=== PATIENT | female | born 1955 | race Caucasian/White ===

== ENCOUNTER 2016-12-25 01:39 | Inpatient (IN) | payer OTHER, MEDICARE ==
[~2016-12-25] VITALS: Ht 167.6 cm; Wt 118.4 kg
[2016-12-25] VITALS (7 sets, daily range): BP systolic 110–142; BP diastolic 60–80
[~2016-12-25 01:39] MED LIST: CELEXA20 M1 PO; COREG 25 MG TAB25 MG PO; CYMBALTA 20 MG20 MG PO; DIAZEPAM5 MG PO; FENTANYL TR12 MCG/HR TOP; LISINOPRIL10 MG PO; LOVENOX 4040 MG/0.4 SC; METFORMIN ER500 MG PO; OPANA5 MG PO; PREVACID 30MG30 MG PO; PROAIR HFA0.09 MG/Ac INH; VENTOLIN1 PUF INH
[2016-12-25] MEDS ORDERED: CELEXA20 M1 PO (06:45)
--- NOTE | 2016-12-25 10:56 | Operative Report ---
Operative/Inv Procedure Report Surgery Date: 12/25/16 Name of Procedure: Supracervical hysterectomy bilateral salpingo-oophorectomy Pre-Operative Diagnosis: Pelvic pain postmenopausal bleeding family history of ovarian cancer Post-Operative Diagnosis: Same Estimated Blood Loss: 500 Surgeon/Forensic Engineer: AIXA BILL,ROBERT Goode and Dr. Cecil Engle Anesthesia: general endotracheal tube Operative/Procedure Note Note: Cc general patient was taken the operating room placed supine position after adequate anesthesia patient placed in dorsolithotomy position the vagina from dorsal fashion bladder was catheterized examination under anesthesia performed stents were placed by Dr. Emma Hernandez will dictate that part of the case patient was returned supine position through an old Pfannenstiel skin incision skin was cut was carried down to rectus fascia which was cut in curvilinear fashion I direction peritoneal cavity was entered high into the abdomen Jones O'Riccardo was placed in usual fashion patient placed in Trendelenburg lap pads with rings placed at this point the round ligament on the left was identified suture- ligated using 0 round ligament left was identified suture-ligated 0 the bladder flap was developed sharply as well as bluntly sequentially the cervical branches uterine artery on the right and left were clamped and cut to level of the external os specimen was removed after Carter ducts been placed in the bases cervix hemostasis was apparent the cuff was oversewn running locking suture and of interrupted [id number]. The right tube and ovary were picked up the endopelvic artery was clamped 2 using Carter ducts the specimen was removed the was sutured 2 using 0 left tube and ovary were picked up clamped 2 the endopelvic artery on the left specimen was removed the artery was oversewn 2 using 0 hemostasis was apparent at this point Darren was applied the cervical cuff lap pads were removed hemostasis was apparent the peritoneum was reapproximated using 0 the fascia was reapproximated to continue sutures #1 skin was reapproximated connie sterile dressings were applied at the end the case the vagina was irrigated found to be hemostatic the [place] atrophy some Darren was applied to the vagina for bleeding from the hymenal ring hemostasis was apparent all stents removed bilaterally tip intact patient was returned spine position sterile dressing was applied to the abdomen the patient was extubated awakened from anesthesia and transferred recovery room awake alert with counts correct Findings: Slightly enlarged uterus ovaries consistent with postmenopausal status evidence bilateral tubal ligation
[2016-12-25] MEDS ORDERED: IBUPROFEN800 M1 PO (15:54)
[2016-12-25] MEDS ORDERED: PERCOCET 5-3251 EACH PO (15:54)
--- NOTE | 2016-12-25 21:50 | Operative Report ---
Operative/Inv Procedure Report Surgery Date: 12/25/16 Name of Procedure: cystoscopy: bilateral stent insertion Pre-Operative Diagnosis: ovarian cyst Post-Operative Diagnosis: same Estimated Blood Loss: scant Surgeon/Music Teacher: MD BLANCA BYERS-UROLOGY Anesthesia: general endotracheal tube Specimens: UCX Complications: NONE Operative/Procedure Note Note: The patient was taken to the operating room and placed on the OR table in supine position. Timeout was performed, with the patient awake, to confirm identify, planned procedures, anesthesia, antibiotics and other pertinent dawood-operative information. After adequate anesthesia, and IV antibiotics, the patient was placed in lithotomy Yellow-fin stirrups. She was then draped and prepped in the usual surgical fashion, including a vaginal prep. A 22 Frisian cystoscope sheath with a 30 angle lens was inserted into the bladder without significant difficulty. The bladder was thoroughly and systematically examined, and was noted to be free of tumor, free of stone, free of endometriosis. Both ureteral orifices were in their orthotopic positions with clear reflux bilaterally. Under direct visualization the left orifice was intubated with a 5 Frisian whistle-tip catheter, which was advanced easily into the left kidney pelvis. The right ureteral orifice was intubated with a second 5 Frisian ureteral whistle tip catheter, and advanced into the right renal pelvis without difficulty. For identification purposes the blue marked stent went into the left kidney and the right ureteral stent was marked red. Urine culture was obtained and sent to pathology. The cystoscope was then removed leaving both stents in proper place. An 18 Frisian Brothers catheter was inserted draining clear fluid and 10 mL of sterile water was then placed in the balloon. The ends ureteral stents, which protruded externally, were taped to the Brothers catheter in order to secure their position. The individual ureteral stents were then connected to their individual drainage devices. The patient tolerated the procedure well. All sponge needle and instrument count were correct at the end of this procedure. The patient was then placed in supine position with Venodyne's in place. At this point, Dr. Dupree was able to proceed with her patient's surgery. CC: ZEESHAN BILL,BLANCA
[2016-12-26] VITALS (11 sets, daily range): BP systolic 100–130; BP diastolic 60–80
--- NOTE | 2016-12-26 02:13 | NUR ---
AT 2330 PT C/O 9/10 DULL PAIN IN LEFT ABD AND LOWER ABD, PER PT THAT PAIN IS GETTING WORSE. PT ON AEROPLANE PILOT AND STILL IN PAIN. DR. KRUSE CALLED BY PREVIOUS RN UNITY. ONE TIME ORDER IV DILUADID ORDERED.
--- NOTE | 2016-12-26 06:36 | PN- Post Delivery/GYN ---
Subjective Subjective: NO COMPLAINT Objective Last 24 Hrs of Vital Signs/I&O Vital Signs Date Time Temp Pulse Resp B/P Pulse O2 O2 Flow FiO2 Ox Delivery Rate 12/26 0535 97.7 66 20 118/60 94 Room Air 12/26 0208 97.8 64 20 120/60 96 Room Air 12/26 0200 97.8 64 20 120/80 12/26 0115 97.6 62 20 126/60 96 Room Air 12/26 0000 97.6 62 20 126/60 12/25 2200 98.0 67 20 130/60 98 Nasal Cannula 12/25 2004 98.2 70 20 142/80 98 Nasal Cannula 12/25 1814 98.4 70 20 130/70 98 Nasal Cannula 12/25 1600 Nasal 2.0L Cannula 12/25 1600 98.1 71 20 126/60 96 Nasal Cannula 12/25 1400 98.5 73 20 110/60 12/25 1400 98.5 73 20 110/60 95 Nasal 2.0L Cannula 12/25 1200 98.3 89 18 130/72 12/25 1153 98.3 89 20 130/72 94 Nasal 2.0L Cannula Intake & Output 12/26 0800 12/26 0000 12/25 1600 Intake Total 1095 375 Output Total 500 400 Balance 595 -25 Intake, IV 975 375 Intake, Oral 120 Output, Urine 500 400 Patient 261 lb Weight Physical Exam: PE OBESE WF IN NAD LUNGS CLEAR ABD SOFT NT INCISION CDI EXT -EDEMA -HOMANS Assessment/Plan Assessment/Plan ASSESS S/P SUPRA CERVICAL HYST PLAN ADVANCE DIET D/C IN AM
[2016-12-26 13:13] LABS: ABSOLUTE BASOPHIL COUNT 0 /CUMM (0.0-0.2); ABSOLUTE EOSINOPHIL COUNT 0 /CUMM (0.0-0.7); ABSOLUTE MONOCYTE COUNT 1.1 /CUMM (0.10-0.60); MEAN PLATELET VOLUME 8.1 FL (7.4-10.4); RBC DISTRIBUTION WIDTH 12.7 % (11.5-14.5)
[2016-12-26 13:18] LABS: ABSOLUTE GRANULOCYTE CT 10.2 /CUMM (1.4-6.5); ABSOLUTE LYMPH COUNT 2.1 /CUMM (1.2-3.4); BASOPHIL % 0.3 % (0.0-2.0); EOSINOPHIL % 0.2 % (0-5); GRANULOCYTE % 75.7 % (42.2-75.2); MEAN CORPUSCULAR HGB 33.3 PG (27.0-31.0); MEAN CORPUSCULAR HGB CONC 33.3 G/DL (33.0-37.0); MEAN CORPUSCULAR VOLUME 100.2 FL (81.0-99.0); PLATELET COUNT 280 /CUMM (130-400); RED BLOOD CELL CT 3.48 /CUMM (4.20-5.40); WHITE BLOOD CELL COUNT 13.4 /CUMM (4.8-10.8)
[2016-12-26 13:20] LABS: HEMATOCRIT 34.9 % (37-47)
[2016-12-27 07:20] VITALS: BP 120/80
--- NOTE | 2016-12-27 11:12 | PN- Post Delivery/GYN ---
Subjective Subjective: Patient having some pain issues this morning., Describes moving around yesterday a little more and now having some trouble with her pain which she describes is not well controlled with her current pain regimen. Is ambulating and tolerating diet well though not liking her food here. Nausea controlled with medication. Has passed flatus but no bowel movement, voiding well. Asking to stay in hospital for another day. Review of Systems: per above Objective Last 24 Hrs of Vital Signs/I&O Vital Signs Date Time Temp Pulse Resp B/P Pulse O2 O2 Flow FiO2 Ox Delivery Rate 12/27 0720 98.0 66 20 120/80 96 Room Air 12/26 2238 98.1 64 20 120/72 96 Room Air 12/26 1450 97.8 63 20 100/60 96 Intake & Output 12/27 1600 12/27 0800 12/27 0000 Intake Total 240 480 Output Total 700 200 Balance -460 280 Intake, Oral 240 480 Output, Urine 700 200 Physical Exam: NAD RRR S1 and S2 CTAB Abd: Moderate TTP. No rebound. GoodBS Incision: Clean and intact. [place] in place. Mildly moist. Ecchymosis noted above incision. Current Medications: Current Medications Sig/Noel Start time Last Medication Dose Route Stop Time Status Admin Acetaminophen 1,000 MG Q6P PRN 12/25 1600 12/25 N/A 1 UNIT IV 2325 Al Hydroxide/Mg 30 ML .STK-MED ONE 12/26 2157 DC Hydroxide PO 12/26 2158 Al Hydroxide/Mg 30 ML AT BEDTIME NEED.. 12/26 Hydroxide PO 2159 Citalopram 20 MG DAILY 12/26 1000 AC 12/27 Hydrobromide PO 1019 Diphenhydramine HCl 25 MG Q6P PRN 12/25 1015 12/26 INJ 1708 Docusate Sodium 100 MG BID 12/25 2200 AC 12/27 PO 1019 Ibuprofen 800 MG Q6P PRN 12/26 1015 12/27 PO 0754 Ketorolac 30 MG Q6P PRN 12/25 1015 12/27 Tromethamine INJ 0320 Magnesium Hydroxide 30 ML AT BEDTIME NEED.. 12/26 1015 12/27 PO 0931 Melatonin 3 MG AT BEDTIME 12/27 2199 AC PO Ondansetron HCl 4 MG Q6P PRN 12/25 1015 AC 12/27 IV 0931 Oxycodone/ 2 TAB Q4P PRN 12/27 1130 UNVr Acetaminophen PO Oxycodone/ 1 TAB Q4P PRN 12/26 1015 DC 12/27 Acetaminophen PO 1019 Last 24 Hrs of Labs/Mateusz: Laboratory Tests 12/26/16 1244: CBC w Diff NO MAN DIFF REQ, RBC 3.48 L, MCV 100.2 H, MCH 33.3 H, RDW 12.7, MPV 8.1, Gran % 75.7 H, Lymphocytes % 15.9 L, Monocytes % 7.9, Eosinophils % 0.2, Basophils % 0.3, Absolute Granulocytes 10.2 H, Absolute Lymphocytes 2.1, Absolute Monocytes 1.1 H, Absolute Eosinophils 0, Absolute Basophils 0, PUBS MCHC 33.3 Assessment/Plan Assessment/Plan 61 yo female s/p SASCHA POD #2 Overall doing well though working on improvement in pain control. Will plan to increase her percocet to 1- 2 tabs PRN pain (depending on pain scale). Will consider adding dilaudid PRN, but will hold off at this time. Patient was counseled on the need to find a good pain regimen, keeping in mind that she will not have an IV when she goes home. Also will attempt to balance her history of pain medication abuse. Will place ABD pad underneath pannus to help with humidity at site of incision. Continue to encourage voiding and ambulating. Continue diet. Encouraged to have family bring outside food to encourage more intake. Will add melatonin for improvement of sleep. Consider quiet hours if patient requests. SCD and IS for prphx. Maalox for reflux PRN Will keep in house overnight and consider discharge tomorrow if improvement in condition Attending MD Review Statement Attending Statement Attending MD Statement: examined this patient, discussed with family, discussed with nursing
[2016-12-27 14:17] VITALS: BP 120/72
[2016-12-27 21:48] VITALS: BP 116/80
[2016-12-28 06:59] VITALS: BP 118/70
--- NOTE | 2016-12-28 10:03 | PN- Post Delivery/GYN ---
Subjective Subjective: Patient with improved pain control, but overall "not feeling well". Describes moving around better yesterday with minimal help. Is ambulating and tolerating diet well. No nausea. Has passed flatus but no bowel movement and "feeling uncomfortable" from this, voiding well. Asking to stay in hospital for another day. Review of Systems: per above Objective Last 24 Hrs of Vital Signs/I&O Vital Signs Date Time Temp Pulse Resp B/P Pulse O2 O2 Flow FiO2 Ox Delivery Rate 12/28 0659 98.4 67 20 118/70 97 Room Air 12/27 2148 97.7 66 20 116/80 96 12/27 1417 98.1 61 20 120/72 96 Intake & Output 12/28 1600 12/28 0800 12/28 0000 Intake Total 250 240 Output Total Balance 250 240 Intake, IV 10 Intake, Oral 240 240 Physical Exam: NAD RRR S1 and S2 CTAB Abd: Obese, binder in place, Not distended, Good BS, minimal TTP throughout. No rebound. Incision: [place] in place. Ecchymosis still present above the incision. C/D/I Current Medications: Current Medications Sig/Noel Start time Last Medication Dose Route Stop Time Status Admin Acetaminophen 1,000 MG Q6P PRN 12/25 1600 AC 12/25 N/A 1 UNIT IV 2325 Al Hydroxide/Mg 30 ML .STK-MED ONE 12/27 1548 DC Hydroxide PO 12/27 1549 Al Hydroxide/Mg 30 ML AT BEDTIME NEED.. 12/26 2115 12/27 Hydroxide PO 1552 Bisacodyl 5 MG DAILY 12/28 1000 AC PO Citalopram 20 MG DAILY 12/26 1000 AC 12/28 Hydrobromide PO 0836 Diphenhydramine HCl 25 MG Q6P PRN 12/25 1015 AC 12/28 INJ 0540 Docusate Sodium 100 MG BID 12/25 2200 AC 12/28 PO 0836 Ibuprofen 800 MG Q6P PRN 12/26 1015 AC 12/27 PO 0754 Ketorolac 30 MG .STK-MED ONE 12/27 1852 DC Tromethamine IM 12/27 1853 Ketorolac 30 MG .STK-MED ONE 12/27 1300 DC Tromethamine IM 12/27 1301 Ketorolac 30 MG Q6P PRN 12/25 1015 AC 12/28 Tromethamine INJ 0837 Magnesium Hydroxide 30 ML .STK-MED ONE 12/28 2115 DC PO 12/27 2116 Magnesium Hydroxide 30 ML AT BEDTIME NEED.. 12/26 1015 AC 12/27 PO 0931 Melatonin 3 MG AT BEDTIME 12/27 2200 AC 12/27 PO 2128 Ondansetron HCl 4 MG Q6P PRN 12/25 1015 AC 12/27 IV 0931 Oxycodone/ 2 TAB Q4P PRN 12/27 1130 AC 12/28 Acetaminophen PO 0452 Oxycodone/ 1 TAB Q4P PRN 12/26 1015 DC 12/27 Acetaminophen PO 1019 Senna 187 MG AT BEDTIME 12/28 220 AC PO Assessment/Plan Assessment/Plan 61 yo female s/p SASCHA POD #3 Overall progressing well through expected postop course. Patient is complaining of some pain issues and constipation that is making her feel very uncomfortable about going home, especially since she is worried about being able to take care of herself tonsun (son is working until 8pm). Patient was counseled extensively about her current condition and the expected postoperative course and patient expectations on symptoms and progression back to baseline. Voiced understanding. Will continue current pain control regimen, however made patient aware that constipation is a side effect of the percocet. No need to add additional pain control meds at this time. Continue to balance with her history of pain medication abuse. Continue vigilant incision cleansing. Continue to encourage voiding and ambulating. Continue diet. Encouraged to have family bring outside food to encourage more intake. Improved sleep last night. Will continue current regimen. Will add senna and dulcolax PO for constipation. Patient aware of enema if needed, will hold at this time. No evidence of obstruction due to continue passing gas and good sounds on exam. SCD and IS for prophx. Maalox for reflux PRN. Monitor vitals closely. Will keep in house overnight for improvement of condition and constipation. Attending MD Review Statement Attending Statement Attending MD Statement: examined this patient, discussed with family, discussed with nursing
[2016-12-28 13:54] VITALS: BP 142/90
--- NOTE | 2016-12-28 15:35 | NUR ---
1000- PT STATING SHE DOES NOT FEEL ABLE TO TAKE CARE OF HERSELF IF SHE IS DISCHARGED HOME. PT STATES HER SON WORKS AND IS ONLY HOME PART OF THE DAY. CLIENT SERVICES ANALYST LUCILLE NOTIFIED AND SPOKE TO DR. GISELA MOON/ COVERING FOR DR. KRUSE. PER DR MOON, CANCEL DISCHARGE ORDER.
[2016-12-28 22:10] VITALS: BP 100/60
[2016-12-29 07:02] VITALS: BP 110/60
--- NOTE | 2016-12-29 11:46 | NUR ---
THIS RN TOOK A TELEPHONE ORDER FROM DR. KRUSE, PT IS CLEARED FOR D/C.
--- NOTE | 2016-12-30 09:46 | NUR ---
Late Entry: Aware of patients discharge home yesterday. Referral had been received via electronic special order jeweler from Dr. Dupree on 12/26/16 . Reason for social work referral "Wants VNA". Case discussed with case technician Carla Hoyt, who noted patient independent in ADL's. No home care ordered.
--- NOTE | 2017-01-08 10:52 | Surgical Discharge Summary ---
Visit Information Visit Dates Admission Date: 12/25/16 Discharge Date: 12/29/16 History of Present Illness Chief Complaint: Postmenopausal bleeding family history of ovarian cancer Medical History Blood Transfusion Hx: No Neurological: NONE EENT: NONE Cardiovascular: NONE Respiratory: NONE Gastrointestinal: NONE Hepatic: NONE Renal: NONE Musculoskeletal: chronic back pain Psychiatric: anxiety, depression Endocrine: obesity Blood Disorders: NONE Cancer(s): NONE SALON PROFESSIONAL/Reproductive: NONE History of MRSA: No History of VRE: No History of CDIFF: No Isolation History: Standard Pneumonia Vaccine: 06/14/14 Influenza Vaccine: 06/14/14 Surgical History Pertinent Surgical History: , knee replacement, spinal fusion, LAP LINDA GASTRIC SLEEVE 2014 THYROIDECTOMY Psychosocial History Who Do You Live With? Patient/Self What is Your Primary Language? Divehi Review of Systems: 13 point review of systems stated in the [facility] Course Course Attending Physician: ROBERT KRUSE MD Primary Care Physician: CHAS BILL,[facility] Course: She was admitted for total abdominal hysterectomy bilateral salpingo- oophorectomy placement of stents she did well first postoperative day she passed gas second postoperative day patient was ready for discharge and she refused secondary lack of bowel movement and also was the patient did not have family to support her take her home from the hospital on third postoperative day patient still had a bowel movement and she refused to go home on and on the fourth postoperative day patient was discharged home following physical exam she's a pale white female with glasses HEENT anicteric lungs clear heart S1 and S2 abdomen soft incision clean dry and intact with connie in place extremities negative edema negative Homans Allergies: Coded Allergies: clindamycin (HIVES 12/25/16) Disposition Summary Disposition Principal Diagnosis: abdominal hysterectomy bilateral salpingo-oophorectomy Additional Diagnosis: Anemia Discharge Disposition: home or self care Discharge Instructions General Discharge Information Code Status: Full Code Patient's Diet: Regular Patient's Activity: Pelvic rest Follow-Up Instructions/Appts: Pelvic rest no heavy lifting greater than 15 pounds for 6 weeks nothing in the vagina for 6 weeks no driving for 2 weeks's 1 week Medications at Discharge Discharge Medications: Continue taking these medications: Citalopram Hydrobromide (Celexa) 20 MG TABLET 1 Tablet ORAL DAILY Comments: Last Taken: 12/29/16 Time: 10AM Start taking the following new medications: Ibuprofen (Ibuprofen) 800 MG TABLET 800 Milligram ORAL EVERY SIX HOURS NEEDED as needed for PAIN Qty = 30 No Refills Comments: Last Taken: 12/29/16 Time: 10AM Oxycodone HCl/Acetaminophen (Percocet 5-325 MG Tablet) 5 MG-325 MG TABLET 1 Tablet ORAL EVERY 4 HOURS NEEDED as needed for PAIN Qty = 30 No Refills Comments: Last Taken: 12/29/16 Time: 6AM
== END 2016-12-29 11:36 | DRG 742 ==
LOC: ENRESERVDT → ENRESERVTM → ENPENDDIS 01:39 → 2NA 01:39 → DELPENDDIS 01:39 → SDA 01:39 → STS 07:00 → SDA 07:00 → EDSTATUS 07:00 → 2NA 11:36
PROVIDERS: ADMIT Specialist
PROC: 0UT90ZZ Resection of Uterus, Open Approach (ICD-10-PCS; principal; 2016-12-25)
PROC: 0UT70ZZ Resection of Bilateral Fallopian Tubes, Open Approach (ICD-10-PCS; principal; 2016-12-25)
PROC: 0UT20ZZ Resection of Bilateral Ovaries, Open Approach (ICD-10-PCS; principal; 2016-12-25)
PROC: 0T788DZ Dilation of Bilateral Ureters with Intraluminal Device, Via Natural or Artificial Opening Endoscopic (ICD-10-PCS; 2016-12-25)
DX: N95.0 Postmenopausal bleeding (principal); Z68.41 Body mass index [BMI] 40.0-44.9, adult; E66.9 Obesity, unspecified; Z80.41 Family history of malignant neoplasm of ovary; N83.202 Unspecified ovarian cyst, left side; N83.201 Unspecified ovarian cyst, right side
CPT/HCPCS: 2NASP; 36415; 87086; 88307; 93005; 93010; C9399; J0131; J0694; J1170; J1200; J1885; J2405